=== PATIENT | male | born 1965 | race Caucasian/White ===

== ENCOUNTER 2016-10-20 05:14 | Day surgery (SDC) | payer BC ==
[~2016-10-20 05:14] MED LIST: Dextrose 5%-0.45% NaCl 1,000 ML IV SCH; Sodium Chloride 0.9% 10 ML Syringe FLUSH PRN
[2016-10-20] MEDS ORDERED: Sodium Chloride 0.9% 10 ML Syringe FLUSH PRN ×2 (05:59→07:16)
[2016-10-20] MEDS ORDERED: Dextrose 5%-0.45% NaCl 1,000 ML IV SCH ×2 (06:00→07:30)
[2016-10-20] MEDS ORDERED: fentaNYL 100 MCG/2 ML SDV ONE (06:13)
[2016-10-20] MEDS ORDERED: Midazolam 1 MG/ML 2 ML SDV ONE (06:13)
[2016-10-20] MEDS ORDERED: fentaNYL 100 MCG/2 ML SDV IV ONE ×5 (06:29→16:49)
[2016-10-20] MEDS ORDERED: Midazolam 1 MG/ML 2 ML SDV IV ONE ×7 (06:30→16:49)
--- NOTE | 2016-10-20 07:47 | OR ---
DATE: 10/20/2016 PROCEDURES: Total colonoscopy, NBI, and cold snare polypectomy. INSTRUMENT USED: CF-H180AL Olympus video colonoscope. PREMEDICATIONS: Fentanyl 150 mcg intravenous, Versed 4 mg intravenous. The procedure was done under pulse oximetry, BP recording, and telemetry monitor. INDICATION: Screening colonoscopic examination is done for detection of any polypoid lesions and removal, endoscopic hemostasis therapy if needed. DESCRIPTION OF PROCEDURE: Initial rectal exam was unremarkable. Rigid anoscopy was normal. The scope was passed with ease. Numerous scattered diverticula were noted, more so in the distal left colon. The scope was passed with ease up to the ileocecal area, photographs were taken of the normal-appearing cecum, identified by appendiceal orifice and double-bulged ileocecal folds. No bleeding was noted from any of the visualized areas at the commencement of the examination. No stricture. No vascular ectasia. No large isolated ulcerations seen. No evidence of diffuse inflammatory bowel disease in the form of friability, contact bleeding, or ulcerations. In the mid-ascending colon, less than 1 cm sized superficial sessile polyp was noted, NBI views were obtained, cold snare polypectomy was done, the tissue was retrieved and sent for histopathology. Probing the proximal sides of folds and flexures, using adequate distention and clearing of the stool material, withdrawal of the scope was made, cecum to rectum time over 6 minutes. No bleeding was noted from any of the visualized areas at the completion of examination. IMPRESSION: 1. Diverticulosis. 2. Ascending colon polyp. The patient tolerated the procedure well. [facility] /[id number]
[2016-10-20 08:09] VITALS: BP 145/89
== END 2016-10-20 08:30 | disposition home or self-care (01) ==
LOC: DL.ENDO 05:14
PROVIDERS: ATTEND Internal Medicine Gastroenterology
DX: Z12.11 Encounter for screening for malignant neoplasm of colon (principal); D12.2 Benign neoplasm of ascending colon; K57.30 Diverticulosis of large intestine without perforation or abscess without bleeding; I10 Essential (primary) hypertension; E11.9 Type 2 diabetes mellitus without complications; E78.5 Hyperlipidemia, unspecified; E66.9 Obesity, unspecified; Z72.0 Tobacco use; Z98.890 Other specified postprocedural states; F17.210 Nicotine dependence, cigarettes, uncomplicated; Z79.82 Long term (current) use of aspirin; Z79.01 Long term (current) use of anticoagulants; Z79.84 Long term (current) use of oral hypoglycemic drugs; Z79.899 Other long term (current) drug therapy
CPT/HCPCS: 45385; J2250; J3010; J7042

== ENCOUNTER 2017-02-07 13:14 | Emergency (ER) | payer BC ==
[2017-02-07 13:23] VITALS: BP 147/80
--- NOTE | 2017-02-07 13:35 | EDM.PDOC ---
ED HPI GENERAL MEDICAL PROBLEM - General Chief Complaint: Lower Extremity Injury/Pain Stated Complaint: LEFT KNEE Time Seen by Provider: 02/07/17 13:30 Source of Information: Reports: Patient History Limitations: Reports: No Limitations - History of Present Illness INITIAL COMMENTS - FREE TEXT/NARRATIVE: This 51 yo male patient reports to the ED with left posterior knee pain. The patient reports about 20 minutes prior to arrival in the ED, he was stepping up into his truck with the left foot followed by the right foot. When he placed the right foot on the running board, the patient reports he heard a "pop" and began to have increased pain in the back of his left knee. The patient reports increased pain and discomfort with putting weight on his left knee. Onset: Today Duration: Minutes: (20), Constant Location: Reports: Lower Extremity, Left (posterior knee) Quality: Reports: Ache, Dull Severity: Moderate Improves with: Reports: Rest Worsens with: Reports: Movement Context: Reports: Activity Associated Symptoms: Reports: No Other Symptoms Left Knee Pain Score (Numeric/FACES): 8 - Related Data Allergies Allergy/AdvReac Type Severity Reaction Status Date / Time No Known Allergies Allergy Verified 02/07/17 13:20 Home Meds: Home Meds Triamterene/Hydrochlorothiazid [Triamterene-HCTZ 37.5-25 MG] 37.5 each PO DAILY 08/03/13 [History] buPROPion [Wellbutrin XL] 1 tab PO BID 05/07/14 [History] Glimepiride [Amaryl] 2 mg PO DAILY 02/24/16 [History] Losartan [Cozaar] 50 mg PO DAILY 02/24/16 [History] Simvastatin [Simvastatin] 30 mg PO DAILY 02/24/16 [History] metFORMIN [Glucophage XR] 1,000 mg PO BIDMEALS 02/24/16 [History] Aspirin/Calcium Carbonate/Mag [Aspirin Buffered 325 mg Tab] 1 tab PO DAILY 09/30 [History] Past Medical History HEENT History: Reports: Hard of Hearing Other HEENT History: 22 ear operations (?) Cardiovascular History: Reports: High Cholesterol, Hypertension, Other (See Below) Other Cardiovascular History: HYPERLIPIDEMIA Respiratory History: Reports: None Gastrointestinal History: Reports: None Genitourinary History: Reports: None Musculoskeletal History: Reports: Back Pain, Chronic, Other (See Below) Other Musculoskeletal History: 4 back surgeries. L ANKLE INJURY. BURSITIS, PREPATELLAR, LEFT Neurological History: Reports: Other (See Below) Other Neuro History: FERNANDEZ'S PALSY Psychiatric History: Reports: None Endocrine/Metabolic History: Reports: Diabetes, Type II, Obesity/BMI 30+ Hematologic History: Reports: None Immunologic History: Reports: None Oncologic (Cancer) History: Reports: None Dermatologic History: Reports: None - Infectious Disease History Infectious Disease History: Reports: Chicken Pox - Past Surgical History HEENT Surgical History: Reports: Adenoidectomy, Myringotomy w Tube(s), Naso- Sinus Surgery, Polypectomy, Tonsillectomy, Other (See Below) Other HEENT Surgeries/Procedures: LIP SUTURE GI Surgical History: Reports: None Male Surgical History: Reports: Vasectomy Social & Family History - Family History Family Medical History: Unobtainable - Tobacco Use Smoking Status *Q: Current Every Day Smoker Years of Tobacco use: 39 Packs/Tins Daily: 0.5 Used Tobacco, but Quit: No Second Hand Smoke Exposure: Yes - Caffeine Use Caffeine Use: Reports: Coffee, Soda Caffeine Use Comment: 4 CUPS DAILY - Alcohol Use Days Per Week of Alcohol Use: 0 - Recreational Drug Use Recreational Drug Use: No - Living Situation & Occupation Living situation: Reports: Occupation: Employed Review of Systems - Review of Systems Review Of Systems: ROS reveals no pertinent complaints other than HPI. ED EXAM, GENERAL - Physical Exam Exam: See Below Exam Limited By: No Limitations General Appearance: Alert, WD/WN, Moderate Distress, Obese Eye Exam: Bilateral Eye: EOMI, Normal Inspection, PERRL Ears: Normal External Exam, Normal Canal, Hearing Grossly Normal, Normal TMs Nose: Normal Inspection, Normal Mucosa, No Blood Throat/Mouth: Normal Inspection, Normal Lips, Normal Teeth, Normal Gums, Normal Oropharynx, Normal Voice, No Airway Compromise Head: Atraumatic, Normocephalic Neck: Normal Inspection, Supple, Full Range of Motion Respiratory/Chest: No Respiratory Distress, Lungs Clear, Normal Breath Sounds, No Accessory Muscle Use, Chest Non-Tender Cardiovascular: Normal Peripheral Pulses, Regular Rate, Rhythm, No Edema, No Gallop, No JVD, No Murmur, No Rub GI/Abdominal: Normal Bowel Sounds, Soft, Non-Tender, No Organomegaly, No Distention, No Abnormal Bruit, No Mass (Male) Exam: Deferred Rectal (Males) Exam: Deferred Back Exam: Normal Inspection, Full Range of Motion, NT Extremities: Leg Pain (left posterior knee pain pain with anterior drawer test) , Limited Range of Motion (due to pain) Neurological: Alert, Oriented, CN II-XII Intact, Normal Cognition, No Motor/ Sensory Deficits, Abnormal Gait (due to pain in the left knee) Psychiatric: Normal Affect, Normal Mood Skin Exam: Warm, Dry, Intact, Normal Color, No Rash Lymphatic: No Adenopathy Course - Vital Signs Last Recorded V/S: Last Vital Signs Temp 35.3 C 02/07/17 13:22 Pulse 68 02/07/17 13:22 Resp 20 02/07/17 13:22 BP 147/80 H 02/07/17 13:22 Pulse Ox 100 02/07/17 13:22 - Orders/Labs/Meds Orders: Active Orders 24 hr Category Date Time Status Knee 3V Lt [CR] Urgent Exams 02/07/17 13:29 Taken DME for Discharge [COMM] Urgent Oth 02/07/17 14:06 Ordered Departure - Departure Time of Disposition: 14:06 Disposition: Home, Self-Care 01 Condition: Fair Clinical Impression: Strain of left knee Qualifiers: Encounter type: initial encounter Qualified Code(s): S86.912A - Strain of unspecified muscle(s) and tendon(s) at lower leg level, left leg, initial encounter - Discharge Information Instructions: Knee Sprain, [id number] Forms: ED Department Discharge Care Plan Goals: The patient was advised of the examination and x-ray results during the visit. The patient was encouraged to rest, ice and elevate his left knee over the next 24-48 hours. The patient may take Tylenol or ibuprofen as needed for temporary symptom relief. If the patient has any additional symptoms or concerns, the patient should follow-up with his primary care facility or return to the emergency department. - My Orders Last 24 Hours: My Active Orders 02/07/17 13:29 Knee 3V Lt [CR] Urgent 02/07/17 14:06 DME for Discharge [COMM] Urgent - Assessment/Plan Last 24 Hours: My Active Orders 02/07/17 13:29 Knee 3V Lt [CR] Urgent 02/07/17 14:06 DME for Discharge [COMM] Urgent
== END 2017-02-07 14:11 | disposition home or self-care (01) ==
LOC: DL.ED 13:14
DX: S86.912A Strain of unspecified muscle(s) and tendon(s) at lower leg level, left leg, initial encounter (principal); E11.9 Type 2 diabetes mellitus without complications; F17.210 Nicotine dependence, cigarettes, uncomplicated; Z79.899 Other long term (current) drug therapy; Z79.82 Long term (current) use of aspirin; Z79.84 Long term (current) use of oral hypoglycemic drugs; X50.1XXA Overexertion from prolonged static or awkward postures, initial encounter
CPT/HCPCS: 73562-LT; 99283

== ENCOUNTER 2017-05-13 09:31 | Emergency (ER) | payer BC ==
[2017-05-13] MEDS: Aspirin 81 MG Tab.Chew PO ONE (10:02)
[2017-05-13 10:11] VITALS: BP 141/70
--- NOTE | 2017-05-13 10:13 | CR ---
Clinical history: 51-year-old male chest pain. Interpretation: Upright AP portable chest film unremarkable. Normal cardiac silhouette without cephalization of flow, signs of alveolar edema or dependent pleural fluid accumulation (external quality assurance monitor chassis leads). No lung mass, hilar lymphadenopathy or focal lobar pneumonia. No atelectasis/collapse. No pneumothorax. CONCLUSION: No acute cardiopulmonary abnormality.
[2017-05-13 10:56] LABS: CHLORIDE,CL 101 mmol/L (101-111); SODIUM,NA 134 mmol/L (135-145)
--- NOTE | 2017-05-13 11:43 | EDM.PDOC ---
ED HPI GENERAL MEDICAL PROBLEM - General Chief Complaint: Cardiovascular Problem Stated Complaint: [id number] CANT CONTROL PULSE OF BLOOD PRESSURE Time Seen by Provider: 05/13/17 10:10 Source of Information: Reports: Patient History Limitations: Reports: No Limitations - History of Present Illness INITIAL COMMENTS - FREE TEXT/NARRATIVE: This 51 yo male patient reports to the ED with intermittent episodes of chest feeling funny, irregular heartbeats and flushing. The patient reports a history of diabetes, hypertension and tobacco use. The patient has continued to smoke, despite treatment with Wellbutrin. Onset: Today Duration: Hour(s):, Intermittent Location: Reports: Chest Quality: Reports: Dull Severity: Moderate Improves with: Reports: None Worsens with: Reports: None Associated Symptoms: Reports: Weakness Treatments [employer]: Reports: Aspirin - Related Data Allergies Allergy/AdvReac Type Severity Reaction Status Date / Time No Known Allergies Allergy Verified 02/07/17 13:20 Home Meds: Home Meds Triamterene/Hydrochlorothiazid [Triamterene-HCTZ 37.5-25 MG] 37.5 each PO DAILY 08/03/13 [History] buPROPion [Wellbutrin XL] 1 tab PO BID 05/07/14 [History] Glimepiride [Amaryl] 2 mg PO DAILY 02/24/16 [History] Losartan [Cozaar] 50 mg PO DAILY 02/24/16 [History] Simvastatin [Simvastatin] 30 mg PO DAILY 02/24/16 [History] metFORMIN [Glucophage XR] 1,000 mg PO BIDMEALS 02/24/16 [History] Aspirin [Halfprin] 162 mg PO DAILY 05/13/17 [History] Past Medical History HEENT History: Reports: Hard of Hearing Other HEENT History: 22 ear operations (?) Cardiovascular History: Reports: High Cholesterol, Hypertension, Other (See Below) Other Cardiovascular History: HYPERLIPIDEMIA Respiratory History: Reports: None Gastrointestinal History: Reports: None Genitourinary History: Reports: None Musculoskeletal History: Reports: Back Pain, Chronic, Other (See Below) Other Musculoskeletal History: 4 back surgeries. L ANKLE INJURY. BURSITIS, PREPATELLAR, LEFT Neurological History: Reports: Other (See Below) Other Neuro History: FERNANDEZ'S PALSY Psychiatric History: Reports: None Endocrine/Metabolic History: Reports: Diabetes, Type II, Obesity/BMI 30+ Hematologic History: Reports: None Immunologic History: Reports: None Oncologic (Cancer) History: Reports: None Dermatologic History: Reports: None - Infectious Disease History Infectious Disease History: Reports: Chicken Pox - Past Surgical History HEENT Surgical History: Reports: Adenoidectomy, Myringotomy w Tube(s), Naso- Sinus Surgery, Polypectomy, Tonsillectomy, Other (See Below) Other HEENT Surgeries/Procedures: LIP SUTURE GI Surgical History: Reports: None Male Surgical History: Reports: Vasectomy Social & Family History - Family History Family Medical History: Unobtainable - Tobacco Use Smoking Status *Q: Current Every Day Smoker Years of Tobacco use: 35 Packs/Tins Daily: 1 Used Tobacco, but Quit: No Second Hand Smoke Exposure: Yes - Caffeine Use Caffeine Use: Reports: Coffee, Soda Caffeine Use Comment: 4 CUPS DAILY - Alcohol Use Days Per Week of Alcohol Use: 0 - Recreational Drug Use Recreational Drug Use: No - Living Situation & Occupation Living situation: Reports: Occupation: Employed ED ROS GENERAL - Review of Systems Review Of Systems: ROS reveals no pertinent complaints other than HPI. ED EXAM, GENERAL - Physical Exam Exam: See Below Exam Limited By: No Limitations General Appearance: Alert, WD/WN, Moderate Distress Eye Exam: Bilateral Eye: EOMI, Normal Inspection, PERRL Ears: Normal External Exam, Normal Canal, Hearing Grossly Normal, Normal TMs Nose: Normal Inspection, Normal Mucosa, No Blood Throat/Mouth: Normal Inspection, Normal Lips, Normal Teeth, Normal Gums, Normal Oropharynx, Normal Voice, No Airway Compromise Head: Atraumatic, Normocephalic Neck: Normal Inspection, Supple, Non-Tender, Full Range of Motion Respiratory/Chest: No Respiratory Distress, Lungs Clear, Normal Breath Sounds, No Accessory Muscle Use, Chest Non-Tender Cardiovascular: No Edema, No Gallop, No JVD, No Murmur, No Rub, Extra Beats GI/Abdominal: Normal Bowel Sounds, Soft, Non-Tender, No Organomegaly, No Distention, No Abnormal Bruit, No Mass (Male) Exam: Deferred Rectal (Males) Exam: Deferred Back Exam: Normal Inspection, Full Range of Motion, NT Extremities: Normal Inspection, Normal Range of Motion, Non-Tender, Normal Capillary Refill, No Pedal Edema Neurological: Alert, Oriented, CN II-XII Intact, Normal Cognition, Normal Gait, Normal Reflexes, No Motor/Sensory Deficits Psychiatric: Normal Affect, Normal Mood Skin Exam: Warm, Dry, Intact, Normal Color, No Rash EKG INTERPRETATION EKG Date: 05/13/17 Time: 10:00 Rhythm: Other (sinus rhythm with intermittent bigeminal PVC's) [place]: Normal P-Wave: Present Comparison: Change From Previous EKG Course - Vital Signs Last Recorded V/S: Last Vital Signs Temp 37.4 C 05/13/17 09:45 Pulse 103 H 05/13/17 09:45 Resp 18 05/13/17 09:45 BP 141/70 H 05/13/17 09:45 Pulse Ox 98 05/13/17 09:45 - Orders/Labs/Meds Orders: Active Orders 24 hr Category Date Time Status EKG Documentation Completion [RC] URGENT Care 05/13/17 09:47 Active Labs: Laboratory Tests 05/13/17 05/13/17 Range/Units 10:05 10:05 WBC 9.6 (5.0-10.0) 10^3/uL RBC 4.55 L (4.6-6.2) 10^6/uL Hgb 13.8 L D (14.0-18.0) g/dL Hct 41.1 (40.0-54.0) % MCV 90.3 (80-100) fL MCH 30.3 (27.0-34.0) pg MCHC 33.6 (33.0-35.0) g/dL Plt Count 174 (150-450) 10^3/uL Neut % (Auto) 77.4 H (42.2-75.2) % Lymph % (Auto) 14.3 L (20.5-50.1) % [place] % (Auto) 6.4 (2-8) % Eos % (Auto) 1.6 (1.0-3.0) % Baso % (Auto) 0.3 (0.0-1.0) % Sodium 134 L (135-145) mmol/L Potassium 4.2 (3.6-5.0) mmol/L Chloride 101 (101-111) mmol/L Carbon Dioxide 22.0 (21.0-31.0) mmol/L Anion Gap 15.2 BUN 17 (7-18) mg/dL Creatinine 1.1 (0.6-1.3) mg/dL Est Cr Clr Drug Dosing 83.33 mL/min Estimated GFR (MDRD) > 60 BUN/Creatinine Ratio 15.45 Glucose 226 H (74-105) mg/dL Calcium 9.3 (8.4-10.2) mg/dl Total Bilirubin 0.3 (0.2-1.0) mg/dL AST 29 (10-42) IU/L ALT 24 (10-60) IU/L Alkaline Phosphatase 61 (42-121) IU/L Troponin I 0.02 (0.00-0.02) ng/ml Total Protein 7.2 (6.7-8.2) g/dl Albumin 4.2 (3.2-5.5) g/dl Globulin 3.0 Albumin/Globulin Ratio 1.40 Meds: Medications Discontinued Medications Generic Name Dose Route Start Last Admin Trade Name Freq PRN Reason Stop Dose Admin Aspirin 324 mg 05/13/17 09:50 05/13/17 10:02 Aspirin PO 05/13/17 09:51 324 mg ONETIME ONE Administration Departure - Departure Time of Disposition: 11:46 Disposition: DC/Tfer to Acute Hospital 02 Reason for Transfer *Q: Other Condition: Fair Clinical Impression: Frequent PVCs Forms: Interfacility Transfer EMTALA Care Plan Goals: Discussed the patient's history, examination, EKG and lab results with Dr. Geiger (Hospitalist with [facility] in [place]). Dr. Geiger accepted the patient for continued evaluation and further management. The patient will be transported by [facility]. - My Orders Last 24 Hours: My Active Orders 05/13/17 09:47 EKG Documentation Completion [RC] URGENT - Assessment/Plan Last 24 Hours: My Active Orders 05/13/17 09:47 EKG Documentation Completion [RC] URGENT
[2017-05-13] MEDS: Sodium Chloride 0.9% 1,000 ML IV SCH (11:50)
--- NOTE | 2017-05-14 15:15 | EKG ---
05/13/2017 - LADARIUS BARON - TIME: 9:37 FINDINGS: EKG per my reading, shows sinus rhythm at the rate of 102, left anterior fascicular block. No acute ST changes. [facility] /[id number]
== END 2017-05-13 12:00 ==
LOC: DL.ED 09:31
DX: I49.3 Ventricular premature depolarization (principal); E11.9 Type 2 diabetes mellitus without complications; E78.00 Pure hypercholesterolemia, unspecified; F17.210 Nicotine dependence, cigarettes, uncomplicated; I10 Essential (primary) hypertension; Z79.899 Other long term (current) drug therapy; Z79.82 Long term (current) use of aspirin
CPT/HCPCS: 36415; 71045; 80053; 84484; 85025; 93005; 99285; A9270; J7030

== ENCOUNTER 2019-07-30 09:51 | Emergency (ER) | payer BC ==
[2019-07-30 10:20] VITALS: BP 119/74; PULSE 82
--- NOTE | 2019-07-30 10:37 | EDM.PDOC ---
Scribed by Charlene Smith 07/30/19 1023 for Dylan Isbell MD ED HPI GENERAL MEDICAL PROBLEM - General Chief Complaint: Lower Extremity Injury/Pain Stated Complaint: right knee pain and swelling Time Seen by Provider: 07/30/19 09:56 Source of Information: Reports: Patient, RN, RN Notes Reviewed History Limitations: Reports: No Limitations - History of Present Illness INITIAL COMMENTS - FREE TEXT/NARRATIVE: Patient presents to ER by POV with right knee pain. He states that it started on Wednesday. Last evening he noticed some redness to his knee. He has had no injury, but has been out working in his yard. This morning he thought the redness was darker looking. Most of his pain is on the outside of the knee. Onset: Unknown/Unsure Duration: Getting Worse Location: Reports: Lower Extremity, Right (knee) Quality: Reports: Ache Severity: Moderate Improves with: Reports: None Worsens with: Reports: None Associated Symptoms: Reports: No Other Symptoms Right Knee Pain Score (Numeric/FACES): 3 - Related Data Allergies Allergy/AdvReac Type Severity Reaction Status Date / Time No Known Allergies Allergy Verified 07/30/19 09:59 Home Meds: Home Meds Triamterene/Hydrochlorothiazid [Triamterene-HCTZ 37.5-25 MG] 37.5 each PO DAILY 08/03/13 [History] buPROPion [Wellbutrin XL] 1 tab PO BID 05/07/14 [History] Glimepiride [Amaryl] 2 mg PO DAILY 02/24/16 [History] Losartan [Cozaar] 50 mg PO DAILY 02/24/16 [History] Simvastatin 30 mg PO DAILY 02/24/16 [History] metFORMIN [Glucophage XR] 1,000 mg PO BIDMEALS 02/24/16 [History] Aspirin [Halfprin] 81 mg PO DAILY 05/13/17 [History] Dulaglutide [Trulicity] 1 pen SQ Q7D 07/30/19 [History] Empagliflozin [Jardiance] 25 mg PO DAILY 07/30/19 [History] FLUoxetine HCl [Fluoxetine HCl] 20 mg PO DAILY 07/30/19 [History] Levothyroxine 25 mg PO DAILY 07/30/19 [History] Metoprolol Tartrate 25 mg PO DAILY 07/30/19 [History] calcitrioL [Calcitriol] 0.25 mcg PO DAILY 07/30/19 [History] Past Medical History HEENT History: Reports: Hard of Hearing Other HEENT History: 22 ear operations (?) Cardiovascular History: Reports: High Cholesterol, Hypertension, Other (See Below) Other Cardiovascular History: HYPERLIPIDEMIA Respiratory History: Reports: None Gastrointestinal History: Reports: None Genitourinary History: Reports: None Musculoskeletal History: Reports: Back Pain, Chronic, Other (See Below) Other Musculoskeletal History: 4 back surgeries. L ANKLE INJURY. BURSITIS, PREPATELLAR, LEFT Neurological History: Reports: Other (See Below) Other Neuro History: FERNANDEZ'S PALSY Psychiatric History: Reports: None Endocrine/Metabolic History: Reports: Diabetes, Type II, Obesity/BMI 30+ Hematologic History: Reports: None Immunologic History: Reports: None Oncologic (Cancer) History: Reports: None Dermatologic History: Reports: None - Infectious Disease History Infectious Disease History: Reports: Chicken Pox - Past Surgical History HEENT Surgical History: Reports: Adenoidectomy, Myringotomy w Tube(s), Naso- Sinus Surgery, Polypectomy, Tonsillectomy, Other (See Below) Other HEENT Surgeries/Procedures: LIP SUTURE GI Surgical History: Reports: None Male Surgical History: Reports: Vasectomy Social & Family History - Family History Family Medical History: Unobtainable - Caffeine Use Caffeine Use: Reports: Coffee, Soda Caffeine Use Comment: 4 CUPS DAILY - Living Situation & Occupation Living situation: Reports: Occupation: Employed Review of Systems - Review of Systems Review Of Systems: Comprehensive ROS is negative, except as noted in HPI. ED EXAM, GENERAL - Physical Exam Exam: See Below Exam Limited By: No Limitations General Appearance: Alert, WD/WN, No Apparent Distress Head: Atraumatic, Normocephalic Neck: Normal Inspection Respiratory/Chest: No Respiratory Distress, Lungs Clear, Normal Breath Sounds, No Accessory Muscle Use, Chest Non-Tender Cardiovascular: Normal Peripheral Pulses Back Exam: Normal Inspection Extremities: No Pedal Edema, Normal Capillary Refill, Joint Swelling (Slight soft tissue swelling of right lateral knee.), Leg Pain (Rt posterior knee tenderness, no mass or swelling, increased pain with dorsiflexion at the ankle) , Other (Large contusion to right knee anteriorly and laterally.). No: Cayden's Sign, Increased Warmth, Mottled, Pallor, Redness Neurological: Alert, Oriented, CN II-XII Intact, Normal Cognition, No Motor/ Sensory Deficits Psychiatric: Normal Mood Course - Vital Signs Last Recorded V/S: Last Vital Signs Temp 95.6 F L 07/30/19 09:54 Pulse 82 07/30/19 09:54 Resp 18 07/30/19 09:54 BP 119/74 07/30/19 09:54 Pulse Ox 100 07/30/19 09:54 Departure - Departure Time of Disposition: 10:17 Disposition: Home, Self-Care 01 Condition: Good Clinical Impression: Right knee pain Qualifiers: Chronicity: acute Qualified Code(s): M25.561 - Pain in right knee Contusion of right knee Qualifiers: Encounter type: initial encounter Qualified Code(s): S80.01XA - Contusion of right knee, initial encounter - Discharge Information *PRESCRIPTION DRUG MONITORING PROGRAM REVIEWED*: Not Applicable *COPY OF PRESCRIPTION DRUG MONITORING REPORT IN PATIENT KLAUDIA: Not Applicable Instructions: Acute Knee Pain, Adult, Popliteus Tendinitis, Contusion, Easy-to- Read Forms: ED Department Discharge Additional Instructions: Rest, ice, and elevate right knee to reduce pain and swelling. Use Ibuprofen (Advil/Motrin) 200mg: Take 4 tablets by mouth every 8 hours as needed for pain. Take with food/meals. Do not exceed 12 tablets in 24 hours. Rx: Presto 5mg/325mg *Do not drive or work for 8 hours after taking this medication. Follow up in clinic if not improving in 7 to 10 days. Sepsis Event Note - Focused Exam Vital Signs: Vital Signs Temp Pulse Resp BP Pulse Ox 07/30/19 09:54 95.6 F L 82 18 119/74 100 Date Exam was Performed: 07/30/19 Time Exam was Performed: 10:31 I have read and agree with the documentation that has been completed regarding this visit. By signing this record, I attest that the documentation was completed in my physical presence and is an accurate record of the encounter.
== END 2019-07-30 10:35 | disposition home or self-care (01) ==
LOC: DL.ED 09:51
DX: S80.01XA Contusion of right knee, initial encounter (principal); I10 Essential (primary) hypertension; E78.5 Hyperlipidemia, unspecified; E11.9 Type 2 diabetes mellitus without complications; E66.9 Obesity, unspecified; Z79.84 Long term (current) use of oral hypoglycemic drugs; Z79.899 Other long term (current) drug therapy; Z79.82 Long term (current) use of aspirin; X58.XXXA Exposure to other specified factors, initial encounter
CPT/HCPCS: 99283

== ENCOUNTER 2021-03-01 19:43 | Emergency (ER) | payer BC ==
[2021-03-01] MEDS ORDERED: Cyclobenzaprine 10 MG Tab PO ONE (19:44)
[2021-03-01] MEDS ORDERED: Acetaminophen/HYDROcodone 325-10 MG Tab PO ONE (19:44)
--- NOTE | 2021-03-01 20:14 | EDM.PDOC ---
ED HPI GENERAL MEDICAL PROBLEM - General Chief Complaint: Lower Extremity Injury/Pain Stated Complaint: RIGHT INNER THIGH, SOMETHING POPPED AND VERY SORE Time Seen by Provider: 03/01/21 19:55 Source of Information: Reports: Patient History Limitations: Reports: No Limitations - History of Present Illness INITIAL COMMENTS - FREE TEXT/NARRATIVE: ED per wheelchair with c/o pain to right upper thigh and groin. States slipped on ice 2-3 days prior Did not fall. , reportedd soaked in tub after and pain resolved. Sx returned approximately 3 hours ago. Difficulty walking due to dis comfort. Had to leave work. Denied reinjury. Onset pain sudden. no hx clotting disorder. No back pain. Describes as sharp burning. No sweling, bruising or deformity. Right Upper Leg Pain Score (Numeric/FACES): 8 - Related Data Allergies Allergy/AdvReac Type Severity Reaction Status Date / Time No Known Allergies Allergy Verified 03/01/21 19:55 Home Meds: Home Meds Triamterene/Hydrochlorothiazid [Triamterene-HCTZ 37.5-25 MG] 37.5 each PO DAILY 08/03/13 [History] buPROPion [Wellbutrin XL] 1 tab PO BID 05/07/14 [History] Glimepiride [Amaryl] 2 mg PO DAILY 02/24/16 [History] Losartan [Cozaar] 50 mg PO DAILY 02/24/16 [History] Simvastatin 30 mg PO DAILY 02/24/16 [History] metFORMIN [Glucophage XR] 500 mg PO BIDMEALS 02/24/16 [History] Aspirin [Halfprin] 81 mg PO DAILY 05/13/17 [History] Dulaglutide [Trulicity] 1 pen SQ Q7D 07/30/19 [History] Empagliflozin [Jardiance] 25 mg PO DAILY 07/30/19 [History] FLUoxetine HCl [Fluoxetine HCl] 20 mg PO BID 07/30/19 [History] Levothyroxine 25 mcg PO DAILY 07/30/19 [History] Metoprolol Tartrate 25 mg PO DAILY 07/30/19 [History] calcitrioL [Calcitriol] 0.25 mcg PO DAILY 07/30/19 [History] Past Medical History HEENT History: Reports: Hard of Hearing Other HEENT History: 22 ear operations (?) Cardiovascular History: Reports: High Cholesterol, Hypertension, Other (See Below) Other Cardiovascular History: HYPERLIPIDEMIA Respiratory History: Reports: None Gastrointestinal History: Reports: None Genitourinary History: Reports: None Musculoskeletal History: Reports: Back Pain, Chronic, Other (See Below) Other Musculoskeletal History: 4 back surgeries. L ANKLE INJURY. BURSITIS, PREPATELLAR, LEFT Neurological History: Reports: Other (See Below) Other Neuro History: FERNANDEZ'S PALSY Psychiatric History: Reports: None Endocrine/Metabolic History: Reports: Diabetes, Type II, Hyperthyroidism, Obesity/BMI 30+ Hematologic History: Reports: None Immunologic History: Reports: None Oncologic (Cancer) History: Reports: None Dermatologic History: Reports: None - Infectious Disease History Infectious Disease History: Reports: Chicken Pox, Novel Coronavirus - Past Surgical History HEENT Surgical History: Reports: Adenoidectomy, Myringotomy w Tube(s), Naso- Sinus Surgery, Polypectomy, Tonsillectomy, Other (See Below) Other HEENT Surgeries/Procedures: LIP SUTURE GI Surgical History: Reports: None Male Surgical History: Reports: Vasectomy Social & Family History - Family History Family Medical History: Unobtainable - Tobacco Use Tobacco Use Status *Q: Former Tobacco User Used Tobacco, but Quit: Yes Month/Year Tobacco Last Used: 2018 - Caffeine Use Caffeine Use: Reports: Coffee, Soda Caffeine Use Comment: 4 CUPS DAILY - Recreational Drug Use Recreational Drug Use: No - Living Situation & Occupation Living situation: Reports: Occupation: Employed Review of Systems - Review of Systems Review Of Systems: Comprehensive ROS is negative, except as noted in HPI. ED EXAM, GENERAL - Physical Exam Exam: See Below Exam Limited By: No Limitations General Appearance: Alert, Anxious Eye Exam: Bilateral Eye: EOMI Ears: Normal External Exam, Normal TMs Nose: Normal Inspection Throat/Mouth: Normal Inspection Head: Atraumatic, Normocephalic Neck: Normal Inspection Respiratory/Chest: No Respiratory Distress, Lungs Clear, Normal Breath Sounds Cardiovascular: Normal Peripheral Pulses, Regular Rate, Rhythm, No Edema GI/Abdominal: Normal Bowel Sounds, Soft, Non-Tender Back Exam: Full Range of Motion (hip, groin pain worse with gait, external rotation) Extremities: Leg Pain (right groin hip pain, mild inner lower thigh with palpation ), Limited Range of Motion Neurological: Alert, Oriented, Normal Cognition, No Motor/Sensory Deficits Skin Exam: Warm, Dry, Intact, Normal Color, No Rash. No: Ecchymosis, Erythema Course - Vital Signs Last Recorded V/S: Last Vital Signs Temp 97.3 F 03/01/21 19:48 Pulse 48 L 03/01/21 21:24 Resp 18 03/01/21 21:24 BP 146/92 H 03/01/21 21:24 Pulse Ox 98 03/01/21 21:24 - Orders/Labs/Meds Labs: Laboratory Tests 03/01/21 03/01/21 03/01/21 Range/Units 21:10 21:10 21:10 WBC 9.0 (5.0-10.0) 10^3/uL RBC 4.96 (4.6-6.2) 10^6/uL Hgb 14.9 (14.0-18.0) g/dL Hct 45.7 (40.0-54.0) % MCV 92.1 (80-100) fL MCH 30.0 (27.0-34.0) pg MCHC 32.6 L (33.0-35.0) g/dL Plt Count 183 (150-450) 10^3/uL Neut % (Auto) 65.8 (42.2-75.2) % Lymph % (Auto) 22.0 (20.5-50.1) % [place] % (Auto) 10.0 H (2-8) % Eos % (Auto) 1.9 (1.0-3.0) % Baso % (Auto) 0.3 (0.0-1.0) % PT 10.4 (9.0-12.0) SEC INR 1.0 (0.9-1.2) D-Dimer, Quantitative < 100 (0-400) ng/mL Sodium 139 (136-145) mmol/L Potassium 4.2 (3.5-5.1) mmol/L Chloride 103 (98-107) mmol/L Carbon Dioxide 26 (21-32) mmol/L Anion Gap 14.2 H (7-13) mEq/L BUN 27 H (7-18) mg/dL Creatinine 1.16 (0.70-1.30) mg/dL Est Cr Clr Drug Dosing 74.29 mL/min Estimated GFR (MDRD) > 60 BUN/Creatinine Ratio 23.3 (No establ ref range) Glucose 127 H (70-99) mg/dL Calcium 8.9 (8.5-10.1) mg/dL Total Bilirubin 0.3 (0.2-1.0) mg/dL AST 21 (15-37) U/L ALT 36 (16-63) U/L Alkaline Phosphatase 71 (46-116) U/L Total Protein 6.8 (6.4-8.2) g/dL Albumin 3.8 (3.4-5.0) g/dL Globulin 3.0 Albumin/Globulin Ratio 1.3 Meds: Medications Discontinued Medications Generic Name Dose Route Start Last Admin Trade Name Freq PRN Reason Stop Dose Admin Hydrocodone Bitart/Acetaminophen Confirm 03/01/21 22:43 Acetaminophen/Hydrocodone 325-10 Mg Tab Administered 03/01/21 22:44 Dose 3 tab .ROUTE .STK-MED ONE Cyclobenzaprine HCl Confirm 03/01/21 22:41 Cyclobenzaprine 10 Mg Tab Administered 03/01/21 22:42 Dose 20 mg .ROUTE .STK-MED ONE Fentanyl 50 mcg 03/01/21 20:52 03/01/21 21:18 Fentanyl 100 Mcg/2 Ml Sdv IVPUSH 03/01/21 20:53 50 mcg ONETIME ONE Administration Protocol Ondansetron HCl 4 mg 03/01/21 20:52 03/01/21 21:15 Ondansetron 4 Mg/2 Ml Sdv IVPUSH 03/01/21 20:53 4 mg ONETIME ONE Administration Departure - Departure Time of Disposition: 22:38 Disposition: Home, Self-Care 01 Condition: Good Clinical Impression: Right groin pain - Discharge Information *PRESCRIPTION DRUG MONITORING PROGRAM REVIEWED*: No *COPY OF PRESCRIPTION DRUG MONITORING REPORT IN PATIENT KLAUDIA: No Instructions: Muscle Strain, [id number] Referrals: PCP,None [Primary Care Provider] - Forms: ED Department Discharge Additional Instructions: flexeril 10mg one every 8 hours as needed for spasm hydrocodone 10/325 one every 6 hours as needed for sever pain clinic follow up early next week alternate ice and warmth to area
[2021-03-01] MEDS ORDERED: fentaNYL 100 MCG/2 ML SDV IVPUSH ONE (20:52)
[2021-03-01] MEDS ORDERED: Ondansetron 4 MG/2 ML SDV IVPUSH ONE (20:52)
[2021-03-01 21:25] VITALS: BP 146/92; PULSE 48
[2021-03-01 21:35] LABS: ANION GAP 14.2 mEq/L (7-13); CHLORIDE,CL 103 mmol/L (98-107); SODIUM,NA 139 mmol/L (136-145)
--- NOTE | 2021-03-01 21:48 | CT ---
PROCEDURE INFORMATION: Exam: CT Pelvis Without Contrast; Skeletal Exam date and time: 03/01/2021 8:58 PM Age: 55 years old Clinical indication: Other: Right thigh, groin pain TECHNIQUE: Imaging protocol: Computed tomography images of the pelvis without contrast. Exam focused on the skeletal structures. Radiation optimization: All CT scans at this facility use at least one of these dose optimization techniques: automated exposure control; mA and/or kV adjustment per patient size (includes targeted exams where dose is matched to clinical indication); or iterative reconstruction. COMPARISON: No relevant prior studies available. FINDINGS: Stomach and bowel: No bowel wall thickening, obstruction, or other acute pathology. Diffuse colonic diverticulosis is present. There is moderately excessive colonic stool content. Appendix: A normal appendix is identified. Reproductive: The prostate demonstrates mild nonspecific enlargement. The seminal vesicles are normal. Vasculature: The vasculature demonstrates diffuse mild atherosclerotic calcification. Bones/joints: Mild bilateral hip osteoarthritis, as manifested predominantly by decreased joint space and marginal osteophyte formation. Partially visualized lower lumbar spine fixation without discrete complications. There is no evidence of acutely displaced fractures. There is no evidence of joint dislocation. No aggressive osseous lesions. Soft tissues: Chronic coarse calcifications posterior to the right hip, favoring myositis ossificans. Calcified injection granulomas are noted in the subcutaneous tissues of the buttocks. No acute soft tissue findings. IMPRESSION: 1. NEGATIVE FOR ACUTE SKELETAL PATHOLOGY. 2. MILD BILATERAL HIP OSTEOARTHRITIS. 3. INCIDENTAL FINDINGS DETAILED ABOVE.
[2021-03-01] MEDS ORDERED: Cyclobenzaprine 10 MG Tab ONE (22:41)
[2021-03-01] MEDS ORDERED: Acetaminophen/HYDROcodone 325-10 MG Tab ONE (22:43)
== END 2021-03-01 23:00 | disposition home or self-care (01) ==
LOC: DL.ED 19:43
DX: M79.651 Pain in right thigh (principal); R10.31 Right lower quadrant pain; E78.00 Pure hypercholesterolemia, unspecified; I10 Essential (primary) hypertension; E11.9 Type 2 diabetes mellitus without complications; E05.90 Thyrotoxicosis, unspecified without thyrotoxic crisis or storm; E66.9 Obesity, unspecified; Z68.33 Body mass index [BMI] 33.0-33.9, adult; Z79.82 Long term (current) use of aspirin; Z79.899 Other long term (current) drug therapy; Z79.84 Long term (current) use of oral hypoglycemic drugs; Z87.891 Personal history of nicotine dependence
CPT/HCPCS: 36415; 72192; 80053; 85025; 85379; 85610; 96374; 96375; 99284; A9270; J2405; J3010

== ENCOUNTER 2021-05-06 05:17 | Day surgery (SDC) | payer BC ==
[~2021-05-06 05:17] MED LIST changes: +Sodium Chloride 0.9% 10 ML Syringe FLUSH SCH
[2021-05-06] MEDS ORDERED: fentaNYL 100 MCG/2 ML SDV IV ONE ×5 (05:18→06:58)
[2021-05-06] MEDS ORDERED: Midazolam 1 MG/ML 2 ML SDV IV ONE ×7 (05:18→06:46)
[2021-05-06] MEDS ORDERED: fentaNYL 100 MCG/2 ML SDV ONE (05:40)
[2021-05-06] MEDS ORDERED: Midazolam 1 MG/ML 2 ML SDV ONE (05:40)
[2021-05-06] MEDS ORDERED: Dextrose 5%-0.45% NaCl 1,000 ML IV SCH (06:00)
[2021-05-06] MEDS ORDERED: Sodium Chloride 0.9% 10 ML Syringe FLUSH PRN (06:00)
[2021-05-06 09:26] VITALS: BP 129/75; PULSE 65
== END 2021-05-06 09:05 | disposition home or self-care (01) ==
LOC: DL.ENDO 05:17
PROVIDERS: ATTEND Internal Medicine Gastroenterology
DX: Z12.11 Encounter for screening for malignant neoplasm of colon (principal); D12.2 Benign neoplasm of ascending colon; K57.30 Diverticulosis of large intestine without perforation or abscess without bleeding; E11.9 Type 2 diabetes mellitus without complications; I10 Essential (primary) hypertension; E66.09 Other obesity due to excess calories; F32.A Depression, unspecified; I25.10 Atherosclerotic heart disease of native coronary artery without angina pectoris; Z86.16 Personal history of COVID-19; Z01.812 Encounter for preprocedural laboratory examination; Z20.822 Contact with and (suspected) exposure to COVID-19
CPT/HCPCS: 45385; 87635; J2250; J3010; J7042; U0002

== ENCOUNTER 2021-08-08 20:40 | Emergency (ER) | payer BC ==
[2021-08-08] MEDS ORDERED: Sodium Chloride 0.9% 10 ML Syringe FLUSH PRN (21:05)
[2021-08-08] MEDS ORDERED: Sodium Chloride 0.9% 1,000 ML IV ONE (21:06)
[2021-08-08] MEDS ORDERED: Ketorolac 30 MG/ML SDV IVPUSH ONE (21:06)
[2021-08-08] MEDS ORDERED: Ondansetron 4 MG/2 ML SDV IVPUSH ONE (21:16)
[2021-08-08 21:51] LABS: ANION GAP 14.4 mEq/L (7-13)
[2021-08-08] MEDS: Sodium Chloride 0.9% 1,000 ML IV ONE ×2 (22:29→22:34)
[2021-08-08 22:38] VITALS: BP 134/89; PULSE 72
== END 2021-08-08 22:40 | disposition home or self-care (01) ==
LOC: DL.ED 20:40
DX: K59.00 Constipation, unspecified (principal); E78.00 Pure hypercholesterolemia, unspecified; E11.22 Type 2 diabetes mellitus with diabetic chronic kidney disease; N18.2 Chronic kidney disease, stage 2 (mild); E05.90 Thyrotoxicosis, unspecified without thyrotoxic crisis or storm; E66.9 Obesity, unspecified; Z68.34 Body mass index [BMI] 34.0-34.9, adult; Z86.16 Personal history of COVID-19; Z79.82 Long term (current) use of aspirin; Z79.84 Long term (current) use of oral hypoglycemic drugs; Z79.899 Other long term (current) drug therapy
CPT/HCPCS: 36415; 74176; 80053; 81003; 82150; 83690; 85025; 96374; 96375; 99284; J1885; J2405; J3490; J7030

== ENCOUNTER 2022-03-22 00:28 | Emergency (ER) | payer BC ==
[2022-03-22] MEDS ORDERED: Cyclobenzaprine 10 MG Tab PO ONE (00:29)
[2022-03-22 01:09] VITALS: BP 149/96; PULSE 80
[2022-03-22] MEDS ORDERED: Ketorolac 30 MG/ML SDV IM ONE (02:18)
[2022-03-22] MEDS ORDERED: Cyclobenzaprine 10 MG Tab ONE (02:22)
== END 2022-03-22 02:35 | disposition home or self-care (01) ==
LOC: DL.ED 00:28
DX: S70.02XA Contusion of left hip, initial encounter (principal); S40.011A Contusion of right shoulder, initial encounter; M62.838 Other muscle spasm; E11.21 Type 2 diabetes mellitus with diabetic nephropathy; E78.00 Pure hypercholesterolemia, unspecified; Z79.899 Other long term (current) drug therapy; Z79.84 Long term (current) use of oral hypoglycemic drugs; Z79.82 Long term (current) use of aspirin; Z86.16 Personal history of COVID-19; W18.2XXA Fall in (into) shower or empty bathtub, initial encounter
CPT/HCPCS: 72040; 72070; 73030; 73502; 96372; 99283; A9270; J1885

== ENCOUNTER 2022-05-09 12:47 | Emergency (ER) | payer BC ==
[2022-05-09 13:47] VITALS: BP 113/73; PULSE 66
== END 2022-05-09 13:50 | disposition home or self-care (01) ==
LOC: DL.ED 12:47
DX: Z71.1 Person with feared health complaint in whom no diagnosis is made (principal); E78.00 Pure hypercholesterolemia, unspecified; I10 Essential (primary) hypertension; E11.21 Type 2 diabetes mellitus with diabetic nephropathy; E05.90 Thyrotoxicosis, unspecified without thyrotoxic crisis or storm; Z79.84 Long term (current) use of oral hypoglycemic drugs; Z79.899 Other long term (current) drug therapy; Z86.16 Personal history of COVID-19; Z79.82 Long term (current) use of aspirin
CPT/HCPCS: 81003; 99283

== ENCOUNTER 2022-06-12 10:56 | Emergency (ER) | payer BC ==
[2022-06-12] MEDS ORDERED: Sodium Chloride 0.9% 10 ML Syringe FLUSH PRN (11:36)
[2022-06-12] MEDS ORDERED: Iopamidol 755 Mg/ML 100 ML Bottle IVPUSH ONE (11:38)
[2022-06-12 11:42] VITALS: BP 114/85; PULSE 80
[2022-06-12 12:22] LABS: ANION GAP 13.4 mEq/L (7-13)
== END 2022-06-12 14:24 | disposition home or self-care (01) ==
LOC: DL.ED 10:56
DX: M54.16 Radiculopathy, lumbar region (principal); M54.12 Radiculopathy, cervical region; E78.00 Pure hypercholesterolemia, unspecified; I10 Essential (primary) hypertension; E78.5 Hyperlipidemia, unspecified; E11.21 Type 2 diabetes mellitus with diabetic nephropathy; E03.9 Hypothyroidism, unspecified; Z86.16 Personal history of COVID-19; Z79.82 Long term (current) use of aspirin; Z79.899 Other long term (current) drug therapy
CPT/HCPCS: 36415; 70450; 70496; 70498; 80053; 81003; 83880; 84484; 85025; 85610; 93005; 99284; J3490; Q9967; 93010

== ENCOUNTER 2022-08-03 08:30 | Emergency (ER) | payer BC ==
[2022-08-03 08:51] VITALS: BP 115/82; PULSE 83
[2022-08-03] MEDS ORDERED: methylPREDNISolone Sodium Succinate 40 MG/1 ML SDV IM ONE (09:24)
[2022-08-03 09:42] LABS: BASOPHILS PERCENT AUTO 0.4 % (0.0-1.0); EOSINOPHILS PERCENT AUTO 2.7 % (1.0-3.0); HEMATOCRIT 40.2 % (40.0-54.0); HEMOGLOBIN 12.9 g/dL (14.0-18.0); LYMPHOCYTES PERCENT AUTO 14.3 % (20.5-50.1); MEAN CORPUSCULAR HEMOGLOBIN 27.7 pg (27.0-34.0); MEAN CORPUSCULAR HGB CONC 32.1 g/dL (33.0-35.0); MEAN CORPUSCULAR VOLUME 86.3 fL (80-100); MONOCYTES PERCENT AUTO 10.1 % (2-8); NEUTROPHILS PERCENT AUTO 72.5 % (42.2-75.2); PLATELET COUNT,PLT 215 10^3/uL (150-450); RED BLOOD CELL COUNT 4.66 10^6/uL (4.6-6.2); WHITE BLOOD CELL COUNT,WBC 7.2 10^3/uL (5.0-10.0)
[2022-08-03 10:07] LABS: LACTIC ACID 1.2 mmol/L (0.4-2.0)
[2022-08-03 10:28] LABS: A/G RATIO 1.1; ALANINE AMINOTRANSFERASE,ALT 25 U/L (16-63); ALBUMIN 3.4 g/dL (3.4-5.0); ALKALINE PHOSPHATASE 104 U/L (46-116); ANION GAP 13.3 mEq/L (7-13); ASPARTATE AMNIOTRANSFERASE,AST 18 U/L (15-37); BILIRUBIN TOTAL 0.4 mg/dL (0.2-1.0); BLOOD UREA NITROGEN,BUN 19 mg/dL (7-18); BUN/CREATININE RATIO 16.4 (No establ ref range); C-REACTIVE PROTEIN 0.5 mg/dL (0.0-0.9); CALCIUM 8.6 mg/dL (8.5-10.1); CARBON DIOXIDE,CO2 27 mmol/L (21-32); CHLORIDE,CL 104 mmol/L (98-107); CREATININE 1.16 mg/dL (0.70-1.30); EST CRCL DRUG DOSING (CG) 71.11 mL/min; ESTIMATED GFR 74 mL/min (>=60); ETHANOL BLOOD MEDICAL < 3 mg/dL (0); GLUCOSE RANDOM 186 mg/dL (70-99); POTASSIUM,K 4.3 mmol/L (3.5-5.1); PROTEIN TOTAL,TP 6.5 g/dL (6.4-8.2); SODIUM,NA 140 mmol/L (136-145); TSH ULTRASENSITIVE 1.29 uIU/mL (0.36-3.74)
== END 2022-08-03 12:54 ==
LOC: DL.ED 08:30
DX: M48.02 Spinal stenosis, cervical region (principal); M54.12 Radiculopathy, cervical region; G99.2 Myelopathy in diseases classified elsewhere; E78.00 Pure hypercholesterolemia, unspecified; I10 Essential (primary) hypertension; E11.21 Type 2 diabetes mellitus with diabetic nephropathy; E05.91 Thyrotoxicosis, unspecified with thyrotoxic crisis or storm; Z79.899 Other long term (current) drug therapy; Z79.82 Long term (current) use of aspirin; Z79.84 Long term (current) use of oral hypoglycemic drugs
CPT/HCPCS: 36415; 80053; 80307; 82607; 83605; 83735; 84443; 85025; 85651; 86140; 96372; 99285; J2920; 99284

== ENCOUNTER 2023-11-12 16:55 | Emergency (ER) | payer BC ==
[2023-11-12 17:50] VITALS: BP 108/74; PULSE 92
[2023-11-12] MEDS: Orphenadrine 60 MG/2 ML Inj IM ONE (18:28)
== END 2023-11-12 19:23 | disposition home or self-care (01) ==
LOC: DL.ED 16:55
DX: S13.4XXA Sprain of ligaments of cervical spine, initial encounter (principal); M62.838 Other muscle spasm; I10 Essential (primary) hypertension; E78.00 Pure hypercholesterolemia, unspecified; E11.21 Type 2 diabetes mellitus with diabetic nephropathy; E05.90 Thyrotoxicosis, unspecified without thyrotoxic crisis or storm; Z86.16 Personal history of COVID-19; Z79.899 Other long term (current) drug therapy; Z79.82 Long term (current) use of aspirin; Z79.84 Long term (current) use of oral hypoglycemic drugs; Z79.890 Hormone replacement therapy
CPT/HCPCS: 96372; 99283; J2360

== ENCOUNTER 2024-07-06 11:08 | Inpatient (IN) | payer BC ==
[2024-07-06] MEDS ORDERED: Sodium Chloride 0.9% 10 ML Syringe FLUSH PRN (11:22)
[2024-07-06 11:34] LABS: BASOPHILS PERCENT AUTO 0.3 % (0.0-1.0); EOSINOPHILS PERCENT AUTO 0.8 % (1.0-3.0); HEMATOCRIT 48.3 % (40.0-54.0); HEMOGLOBIN 14.7 g/dL (14.0-18.0); LYMPHOCYTES PERCENT AUTO 12.1 % (20.5-50.1); MEAN CORPUSCULAR HEMOGLOBIN 29.1 pg (27.0-34.0); MEAN CORPUSCULAR HGB CONC 30.4 g/dL (33.0-35.0); MEAN CORPUSCULAR VOLUME 95.6 fL (80-100); MONOCYTES PERCENT AUTO 5.8 % (2-8); PLATELET COUNT,PLT 204 10^3/uL (150-450); RED BLOOD CELL COUNT 5.05 10^6/uL (4.6-6.2); WHITE BLOOD CELL COUNT,WBC 7.4 10^3/uL (5.0-10.0)
[2024-07-06 11:54] LABS: ALANINE AMINOTRANSFERASE,ALT 63 U/L (16-63); ALBUMIN 3.7 g/dL (3.4-5.0); ALKALINE PHOSPHATASE 147 U/L (46-116); ANION GAP 13.8 mEq/L (7-13); ASPARTATE AMNIOTRANSFERASE,AST 30 U/L (15-37); BILIRUBIN TOTAL 0.4 mg/dL (0.2-1.0); BLOOD UREA NITROGEN,BUN 28 mg/dL (7-18); BUN/CREATININE RATIO 16.5 (No establ ref range); CALCIUM 9.1 mg/dL (8.5-10.1); CARBON DIOXIDE,CO2 27 mmol/L (21-32); CHLORIDE,CL 87 mmol/L (98-107); MAGNESIUM 2.1 mg/dL (1.8-2.4); POTASSIUM,K 5.8 mmol/L (3.5-5.1); PROTEIN TOTAL,TP 7.4 g/dL (6.4-8.2); SODIUM,NA 122 mmol/L (136-145)
[2024-07-06 11:57] LABS: C-REACTIVE PROTEIN < 0.50 ng/dL (<=0.50); ESTIMATED GFR 46 mL/min (>=60); GLUCOSE RANDOM 980 mg/dL (70-99)
[2024-07-06] MEDS ORDERED: Glucagon,Human Recombinant 1 MG Vial IM PRN ×2 (12:01→14:43)
[2024-07-06] MEDS ORDERED: 50% Dextrose in Water 50 ML Syringe IVPUSH PRN ×2 (12:01→14:43)
[2024-07-06] MEDS: Sodium Chloride 0.9% 1,000 ML IV ONE ×2 (12:01→13:01)
[2024-07-06] MEDS: Insulin Regular, Human 100 Units/ML 10 ML Vial IV ONE (12:07)
[2024-07-06 13:29] LABS: O2 DELIVERY DEVICE ROOM AIR
[2024-07-06 13:39] LABS: PCO2 VENOUS 57 mmHg (41-51); PH,VENOUS 7.31 (7.31-7.41); PO2 VENOUS 28 mmHg (35-42)
[2024-07-06 13:40] LABS: BASE EXCESS VENOUS 0.8 mmol/l ((-2)-(+3)); BICARBONATE,VENOUS 28 mmol/l (19-25); O2 SATURATION VENOUS 32.2 % (60-80)
[2024-07-06 13:52] LABS: KETONES,BLOOD NEGATIVE
[2024-07-06] MEDS ORDERED: Ondansetron 4 MG/2 ML SDV IVPUSH PRN (13:54)
[2024-07-06] MEDS ORDERED: oxyCODONE 5 MG Tab PO PRN (13:54)
[2024-07-06] MEDS ORDERED: Polyethylene Glycol 3350 Powder 17 GM Packet PO PRN (13:54)
[2024-07-06] MEDS ORDERED: Acetaminophen 325 MG Tab PO PRN (13:54)
[2024-07-06] MEDS ORDERED: Docusate Sodium 100 MG Cap PO PRN (13:54)
[2024-07-06] MEDS ORDERED: Sennosides/Docusate Sodium 50-8.6 MG Tab PO PRN (13:54)
[2024-07-06] MEDS ORDERED: Melatonin 3 MG Tab PO PRN (13:54)
[2024-07-06 13:55] LABS: ANION GAP 9.6 mEq/L (7-13); BLOOD UREA NITROGEN,BUN 28 mg/dL (7-18); CALCIUM 8.5 mg/dL (8.5-10.1); CARBON DIOXIDE,CO2 29 mmol/L (21-32); CHLORIDE,CL 96 mmol/L (98-107); CREATININE 1.35 mg/dL (0.70-1.30); PHOSPHORUS 3.9 mg/dL (2.6-4.7); POTASSIUM,K 4.6 mmol/L (3.5-5.1); SODIUM,NA 130 mmol/L (136-145)
[2024-07-06 13:56] LABS: ESTIMATED GFR 61 mL/min (>=60); GLUCOSE RANDOM 593 mg/dL (70-99)
[2024-07-06 14:02] LABS: APPEARANCE,URINE CLEAR (CLEAR); BILIRUBIN,URINE NEGATIVE (NEGATIVE); COLOR,URINE YELLOW (YELLOW); GLUCOSE,URINE >=1000 (NEGATIVE); KETONES,URINE NEGATIVE (NEGATIVE); LEUKOCYTE ESTERASE,URINE NEGATIVE (NEGATIVE); NITRITE,URINE NEGATIVE (NEGATIVE); OCCULT BLOOD,URINE NEGATIVE (NEGATIVE); PH,URINE 5.5 (5.0-9.0); PROTEIN,URINE NEGATIVE (NEGATIVE); UROBILINOGEN,URINE 0.2 mg/dL (0.2-1.0)
[2024-07-06 14:08] LABS: CHOLESTEROL HDL 67 mg/dL (40-59); CHOLESTEROL LDL CALCULATED 73 mg/dL (0-100); CHOLESTEROL TOTAL 187 mg/dL (0-199); TRIGLYCERIDES 237 mg/dL (0-149)
[2024-07-06 14:14] LABS: HEMOGLOBIN A1C > 14.0 % (<5.7)
[2024-07-06] MEDS: Sodium Chloride 0.9% 1,000 ML IV SCH (14:33)
[2024-07-06] MEDS: Potassium Chloride 20 MEQ in Premix Bag 1 BAG IV SCH (14:34)
[2024-07-06 14:52] LABS: CORONAVIRUS COVID-19 NAA NEGATIVE (NEGATIVE); INFLUENZA A NAA NEGATIVE (NEGATIVE); INFLUENZA B NAA NEGATIVE (NEGATIVE)
[2024-07-06] MEDS: Insulin Glarg,Human.Rec.Analog 100 Unit/ML 10 ML Vial SUBCUT ONE (15:09)
[2024-07-06 17:06] LABS: ANION GAP 12.1 mEq/L (7-13); CALCIUM 8.1 mg/dL (8.5-10.1); CREATININE 1.1 mg/dL (0.70-1.30); EST CRCL DRUG DOSING (CG) 74.99 mL/min; POTASSIUM,K 5.1 mmol/L (3.5-5.1)
[2024-07-06] MEDS: Insulin Lispro 100 Units/ML 3 ML Vial SUBCUT SCH (17:17)
[2024-07-06 19:49] LABS: ANION GAP 9.4 mEq/L (7-13); CREATININE 1.28 mg/dL (0.70-1.30); EST CRCL DRUG DOSING (CG) 64.44 mL/min; POTASSIUM,K 4.4 mmol/L (3.5-5.1)
[2024-07-06 20:09] LABS: T4 FREE 0.73 ng/dL (0.76-1.46); TSH ULTRASENSITIVE 2.32 uIU/mL (0.36-3.74)
[2024-07-07 06:45] LABS: BASOPHILS PERCENT AUTO 0.5 % (0.0-1.0); EOSINOPHILS PERCENT AUTO 2.3 % (1.0-3.0); HEMATOCRIT 37.4 % (40.0-54.0); HEMOGLOBIN 12.8 g/dL (14.0-18.0); LYMPHOCYTES PERCENT AUTO 26.9 % (20.5-50.1); MEAN CORPUSCULAR HEMOGLOBIN 30.5 pg (27.0-34.0); MEAN CORPUSCULAR HGB CONC 34.2 g/dL (33.0-35.0); NEUTROPHILS PERCENT AUTO 62.3 % (42.2-75.2); PLATELET COUNT,PLT 165 10^3/uL (150-450); WHITE BLOOD CELL COUNT,WBC 6.1 10^3/uL (5.0-10.0)
[2024-07-07 07:14] LABS: ALBUMIN 2.6 g/dL (3.4-5.0); BILIRUBIN TOTAL 0.3 mg/dL (0.2-1.0); BUN/CREATININE RATIO 20.2 (No establ ref range); CALCIUM 7.9 mg/dL (8.5-10.1); CREATININE 0.94 mg/dL (0.70-1.30); EST CRCL DRUG DOSING (CG) 87.75 mL/min; MAGNESIUM 1.9 mg/dL (1.8-2.4); POTASSIUM,K 4.4 mmol/L (3.5-5.1); PROTEIN TOTAL,TP 5.3 g/dL (6.4-8.2)
[2024-07-07 07:20] LABS: A/G RATIO 0.96; ANION GAP 11.4 mEq/L (7-13)
[2024-07-07] MEDS: Insulin Glarg,Human.Rec.Analog 100 Unit/ML 10 ML Vial SUBCUT ONE (08:00)
[2024-07-07 11:33] VITALS: BP 127/70; PULSE 59
== END 2024-07-07 12:20 | disposition home or self-care (01) | DRG 420 ==
LOC: DL.ED 11:08 → DL.MS 12:11
PROVIDERS: ADMIT Internal Medicine; ATTEND Internal Medicine
DX: E11.00 Type 2 diabetes mellitus with hyperosmolarity without nonketotic hyperglycemic-hyperosmolar coma (NKHHC) (principal); N17.9 Acute kidney failure, unspecified; E87.1 Hypo-osmolality and hyponatremia; E87.5 Hyperkalemia; H91.90 Unspecified hearing loss, unspecified ear; I10 Essential (primary) hypertension; G47.30 Sleep apnea, unspecified; E11.21 Type 2 diabetes mellitus with diabetic nephropathy; M54.9 Dorsalgia, unspecified; G89.29 Other chronic pain; F41.9 Anxiety disorder, unspecified; F32.A Depression, unspecified; E78.1 Pure hyperglyceridemia; E03.9 Hypothyroidism, unspecified; G25.81 Restless legs syndrome; Z79.84 Long term (current) use of oral hypoglycemic drugs; Z79.899 Other long term (current) drug therapy; Z79.4 Long term (current) use of insulin; Z86.16 Personal history of COVID-19; Z90.89 Acquired absence of other organs; Z98.890 Other specified postprocedural states; Z87.891 Personal history of nicotine dependence
CPT/HCPCS: 0240U; 36415; 80048; 80053; 80061; 81003; 82009; 82803; 82947; 83036; 83735; 84100; 84439; 84443; 84484; 85025; 86140; 99222; 99238; 99284; 99285; A9270-GY; J1815-GY; J3480; J7030

== ENCOUNTER 2024-12-22 20:13 | Emergency (ER) | payer BC ==
[2024-12-22] MEDS: Ketorolac 30 MG/ML SDV IM ONE (20:43)
[2024-12-22 21:02] VITALS: BP 138/79; PULSE 88
[2024-12-22] MEDS: Take Home: Cyclobenzaprine 10 MG Tab, 4 Tab Pack PO ONE (21:02)
== END 2024-12-22 21:02 | disposition home or self-care (01) ==
LOC: DL.ED 20:13
DX: G24.3 Spasmodic torticollis (principal); J30.9 Allergic rhinitis, unspecified; E80.0 Hereditary erythropoietic porphyria; I10 Essential (primary) hypertension; E11.40 Type 2 diabetes mellitus with diabetic neuropathy, unspecified; Z86.16 Personal history of COVID-19; Z79.4 Long term (current) use of insulin; Z79.899 Other long term (current) drug therapy
CPT/HCPCS: 96372; 99283; A9270; J1885

== ENCOUNTER 2025-02-04 13:46 | Inpatient (IN) | payer BC ==
[2025-02-04] MEDS ORDERED: Sodium Chloride 0.9% 10 ML Syringe FLUSH PRN (14:01)
[2025-02-04 14:31] LABS: BASOPHILS PERCENT AUTO 0.2 % (0.0-1.0); EOSINOPHILS PERCENT AUTO 0.7 % (1.0-3.0); LYMPHOCYTES PERCENT AUTO 7.7 % (20.5-50.1); MONOCYTES PERCENT AUTO 7.8 % (2-8); NEUTROPHILS PERCENT AUTO 83.6 % (42.2-75.2); PLATELET COUNT,PLT 383 10^3/uL (150-450); RED BLOOD CELL COUNT 5.31 10^6/uL (4.6-6.2); WHITE BLOOD CELL COUNT,WBC 15.1 10^3/uL (5.0-10.0)
[2025-02-04 14:38] LABS: APPEARANCE,URINE CLEAR (CLEAR); GLUCOSE,URINE >=1000 (NEGATIVE); OCCULT BLOOD,URINE TRACE-INTACT (NEGATIVE)
[2025-02-04 14:46] LABS: KETONES,BLOOD SMALL-20 mg/dL
[2025-02-04 14:47] LABS: SQUAMOUS EPITHELIAL CELLS,UR RARE /HPF (NOT SEEN)
[2025-02-04 14:55] LABS: LACTIC ACID 1.8 mmol/L (0.4-2.0)
[2025-02-04 15:01] LABS: ALANINE AMINOTRANSFERASE,ALT 52 U/L (16-63); ASPARTATE AMNIOTRANSFERASE,AST 31 U/L (15-37); BILIRUBIN TOTAL 0.4 mg/dL (0.2-1.0); BLOOD UREA NITROGEN,BUN 45 mg/dL (7-18); CARBON DIOXIDE,CO2 29 mmol/L (21-32); CHLORIDE,CL 83 mmol/L (98-107); CREATININE 1.52 mg/dL (0.70-1.30); EST CRCL DRUG DOSING (CG) 51.43 mL/min; POTASSIUM,K 5.0 mmol/L (3.5-5.1); PROTEIN TOTAL,TP 8.2 g/dL (6.4-8.2); SODIUM,NA 125 mmol/L (136-145)
[2025-02-04 15:03] LABS: A/G RATIO 0.67; ESTIMATED GFR 52 mL/min (>=60); GLUCOSE RANDOM 697 mg/dL (70-99)
[2025-02-04] MEDS ORDERED: 50% Dextrose in Water 50 ML Syringe IVPUSH PRN (15:04)
[2025-02-04] MEDS: Insulin Regular, Human 100 Units/ML 10 ML Vial IV ONE (15:13)
[2025-02-04 16:43] LABS: BASE EXCESS VENOUS 3.6 mmol/l ((-2)-(+3)); BICARBONATE,VENOUS 31 mmol/l (19-25); O2 DELIVERY DEVICE ROOM AIR; O2 SATURATION VENOUS 34.9 % (60-80); PH,VENOUS 7.33 (7.31-7.41); PO2 VENOUS 27 mmHg (35-42)
[2025-02-04 16:45] LABS: PCO2 VENOUS 61 mmHg (41-51)
[2025-02-04] MEDS ORDERED: Ondansetron 4 MG/2 ML SDV IVPUSH PRN (16:51)
[2025-02-04] MEDS ORDERED: Sennosides/Docusate Sodium 50-8.6 MG Tab PO PRN (16:51)
[2025-02-04 17:01] LABS: PHOSPHORUS 3.8 mg/dL (2.6-4.7)
[2025-02-04 17:43] LABS: BLOOD UREA NITROGEN,BUN 38.0 mg/dL (7-18); CARBON DIOXIDE,CO2 29.0 mmol/L (21-32); CHLORIDE,CL 91.0 mmol/L (98-107); CREATININE 1.12 mg/dL (0.70-1.30); EST CRCL DRUG DOSING (CG) 69.8 mL/min; POTASSIUM,K 4.4 mmol/L (3.5-5.1); SODIUM,NA 128.0 mmol/L (136-145)
[2025-02-04 17:47] LABS: ESTIMATED GFR 76.0 mL/min (>=60); GLUCOSE RANDOM 472.0 mg/dL (70-99)
[2025-02-04 18:17] LABS: CORONAVIRUS COVID-19 NAA NEGATIVE (NEGATIVE); INFLUENZA A NAA NEGATIVE (NEGATIVE); INFLUENZA B NAA NEGATIVE (NEGATIVE); RESPIRATORY SYNCYTIAL VIR NAA NEGATIVE (NEGATIVE)
[2025-02-04 18:26] LABS: AMPHETAMINES,URINE NEGATIVE (NEGATIVE); BARBITURATES,URINE NEGATIVE (NEGATIVE); MDMA (ECSTASY), URINE NEGATIVE (NEGATIVE); METHAMPHETAMINES,URINE NEGATIVE (NEGATIVE); OPIATES,URINE NEGATIVE (NEGATIVE); OXYCODONE,URINE NEGATIVE (NEGATIVE); PHENCYCLIDINE,URINE NEGATIVE (NEGATIVE); TCA,URINE NEGATIVE (NEGATIVE)
[2025-02-04] MEDS: Insulin Glarg,Human.Rec.Analog 100 Unit/ML 10 ML Vial SUBCUT SCH (20:28)
[2025-02-04] MEDS: Ampicillin/Sulbactam Na 3 GM in Sodium Chloride 0.9% 100 ML IV SCH (20:32)
[2025-02-04 20:45] LABS: BLOOD UREA NITROGEN,BUN 35.0 mg/dL (7-18); CARBON DIOXIDE,CO2 29.0 mmol/L (21-32); CHLORIDE,CL 91.0 mmol/L (98-107); CREATININE 1.15 mg/dL (0.70-1.30); EST CRCL DRUG DOSING (CG) 67.98 mL/min; POTASSIUM,K 4.1 mmol/L (3.5-5.1); SODIUM,NA 130.0 mmol/L (136-145)
[2025-02-04 20:52] LABS: GLUCOSE RANDOM 421.0 mg/dL (70-99)
[2025-02-04 20:53] LABS: ESTIMATED GFR 73.0 mL/min (>=60)
[2025-02-04] MEDS: Potassium Chloride 10 MEQ Tab.ER PO ONE ×2 (21:11→22:06)
[2025-02-04] MEDS: Insulin Regular, Human 100 Units/ML 10 ML Vial SUBCUT ONE (22:09)
[2025-02-04 22:47] LABS: T4 FREE 0.76 ng/dL (0.76-1.46); TSH ULTRASENSITIVE 2.8 uIU/mL (0.36-3.74)
[2025-02-04 23:38] LABS: BLOOD UREA NITROGEN,BUN 28.0 mg/dL (7-18); CARBON DIOXIDE,CO2 27.0 mmol/L (21-32); CHLORIDE,CL 98.0 mmol/L (98-107); CREATININE 0.94 mg/dL (0.70-1.30); EST CRCL DRUG DOSING (CG) 83.17 mL/min; GLUCOSE RANDOM 288.0 mg/dL (70-99); POTASSIUM,K 4.0 mmol/L (3.5-5.1); SODIUM,NA 133.0 mmol/L (136-145)
[2025-02-04 23:40] LABS: ESTIMATED GFR 93.0 mL/min (>=60)
[2025-02-05] MEDS: Potassium Chloride 10 MEQ Tab.ER PO ONE ×3 (00:10→16:58)
[2025-02-05 06:20] LABS: BASOPHILS PERCENT AUTO 0.2 % (0.0-1.0); EOSINOPHILS PERCENT AUTO 1.1 % (1.0-3.0); LYMPHOCYTES PERCENT AUTO 16.6 % (20.5-50.1); MONOCYTES PERCENT AUTO 9.5 % (2-8); NEUTROPHILS PERCENT AUTO 72.6 % (42.2-75.2); PLATELET COUNT,PLT 289 10^3/uL (150-450); RED BLOOD CELL COUNT 4.08 10^6/uL (4.6-6.2); WHITE BLOOD CELL COUNT,WBC 9.4 10^3/uL (5.0-10.0)
[2025-02-05 06:37] LABS: ALANINE AMINOTRANSFERASE,ALT 31.0 U/L (16-63); ASPARTATE AMNIOTRANSFERASE,AST 19.0 U/L (15-37); BILIRUBIN TOTAL 0.2 mg/dL (0.2-1.0); BLOOD UREA NITROGEN,BUN 24.0 mg/dL (7-18); CARBON DIOXIDE,CO2 28.0 mmol/L (21-32); CHLORIDE,CL 103.0 mmol/L (98-107); CREATININE 0.64 mg/dL (0.70-1.30); EST CRCL DRUG DOSING (CG) 126.56 mL/min; GLUCOSE RANDOM 176.0 mg/dL (70-99); POTASSIUM,K 4.2 mmol/L (3.5-5.1); PROTEIN TOTAL,TP 5.5 g/dL (6.4-8.2); SODIUM,NA 136.0 mmol/L (136-145)
[2025-02-05 06:41] LABS: A/G RATIO 0.62; ESTIMATED GFR 109.0 mL/min (>=60)
[2025-02-05] MEDS: Ampicillin/Sulbactam Na 3 GM in Sodium Chloride 0.9% 100 ML IV SCH (16:58)
[2025-02-05] MEDS: Insulin Glarg,Human.Rec.Analog 100 Unit/ML 10 ML Vial SUBCUT SCH (19:43)
[2025-02-05] MEDS: Potassium Chloride 10 MEQ Tab.ER PO STA (21:06)
[2025-02-06 06:26] LABS: BASOPHILS PERCENT AUTO 0.3 % (0.0-1.0); EOSINOPHILS PERCENT AUTO 1.2 % (1.0-3.0); LYMPHOCYTES PERCENT AUTO 21.4 % (20.5-50.1); MONOCYTES PERCENT AUTO 10.1 % (2-8); NEUTROPHILS PERCENT AUTO 67.0 % (42.2-75.2); PLATELET COUNT,PLT 273 10^3/uL (150-450); RED BLOOD CELL COUNT 3.99 10^6/uL (4.6-6.2); WHITE BLOOD CELL COUNT,WBC 7.3 10^3/uL (5.0-10.0)
[2025-02-06 06:56] LABS: ALANINE AMINOTRANSFERASE,ALT 32.0 U/L (16-63); ASPARTATE AMNIOTRANSFERASE,AST 24.0 U/L (15-37); BILIRUBIN TOTAL 0.2 mg/dL (0.2-1.0); BLOOD UREA NITROGEN,BUN 13.0 mg/dL (7-18); CARBON DIOXIDE,CO2 26.0 mmol/L (21-32); CHLORIDE,CL 104.0 mmol/L (98-107); CREATININE 0.56 mg/dL (0.70-1.30); EST CRCL DRUG DOSING (CG) 144.64 mL/min; GLUCOSE RANDOM 95.0 mg/dL (70-99); POTASSIUM,K 3.9 mmol/L (3.5-5.1); PROTEIN TOTAL,TP 5.6 g/dL (6.4-8.2); SODIUM,NA 137.0 mmol/L (136-145)
[2025-02-06 06:57] LABS: A/G RATIO 0.6; ESTIMATED GFR 114.0 mL/min (>=60)
[2025-02-06] MEDS: Potassium Chloride 10 MEQ Tab.ER PO SCH (08:09)
[2025-02-06] MEDS: Insulin Glarg,Human.Rec.Analog 100 Unit/ML 10 ML Vial SUBCUT SCH (20:58)
[2025-02-07 06:06] LABS: BASOPHILS PERCENT AUTO 0.3 % (0.0-1.0); EOSINOPHILS PERCENT AUTO 1.3 % (1.0-3.0); LYMPHOCYTES PERCENT AUTO 25.4 % (20.5-50.1); MONOCYTES PERCENT AUTO 12.4 % (2-8); NEUTROPHILS PERCENT AUTO 60.6 % (42.2-75.2); PLATELET COUNT,PLT 305 10^3/uL (150-450); RED BLOOD CELL COUNT 4.44 10^6/uL (4.6-6.2); WHITE BLOOD CELL COUNT,WBC 6.7 10^3/uL (5.0-10.0)
[2025-02-07 06:36] LABS: ALANINE AMINOTRANSFERASE,ALT 41.0 U/L (16-63); ASPARTATE AMNIOTRANSFERASE,AST 37.0 U/L (15-37); BILIRUBIN TOTAL 0.3 mg/dL (0.2-1.0); BLOOD UREA NITROGEN,BUN 14.0 mg/dL (7-18); CARBON DIOXIDE,CO2 30.0 mmol/L (21-32); CHLORIDE,CL 100.0 mmol/L (98-107); CREATININE 0.78 mg/dL (0.70-1.30); EST CRCL DRUG DOSING (CG) 103.85 mL/min; GLUCOSE RANDOM 127.0 mg/dL (70-99); POTASSIUM,K 4.6 mmol/L (3.5-5.1); PROTEIN TOTAL,TP 6.5 g/dL (6.4-8.2); SODIUM,NA 137.0 mmol/L (136-145)
[2025-02-07 06:37] LABS: A/G RATIO 0.63; ESTIMATED GFR 103.0 mL/min (>=60)
[2025-02-07 08:45] VITALS: BP 139/79; PULSE 58
== END 2025-02-07 10:52 | disposition home or self-care (01) | DRG 420 ==
LOC: DL.ED 13:46 → DL.MS 16:12 → UNDOADMOB 16:12 → INTOOBSV 16:12 → DL.MS 16:12 → OBSVTOIN 02-05 14:34
PROVIDERS: ADMIT Student in an Organized Health Care Education/Training Program; ATTEND Student in an Organized Health Care Education/Training Program
DX: E11.10 Type 2 diabetes mellitus with ketoacidosis without coma (principal); J18.9 Pneumonia, unspecified organism; J98.4 Other disorders of lung; Z66 Do not resuscitate; H91.90 Unspecified hearing loss, unspecified ear; E78.00 Pure hypercholesterolemia, unspecified; I10 Essential (primary) hypertension; G47.30 Sleep apnea, unspecified; E11.21 Type 2 diabetes mellitus with diabetic nephropathy; M54.9 Dorsalgia, unspecified; G89.29 Other chronic pain; J32.9 Chronic sinusitis, unspecified; F41.9 Anxiety disorder, unspecified; F32.A Depression, unspecified; E05.90 Thyrotoxicosis, unspecified without thyrotoxic crisis or storm; Z86.16 Personal history of COVID-19; Z79.899 Other long term (current) drug therapy; Z79.4 Long term (current) use of insulin; Z79.84 Long term (current) use of oral hypoglycemic drugs; Z90.49 Acquired absence of other specified parts of digestive tract; Z98.890 Other specified postprocedural states
CPT/HCPCS: 36415; 71046; 80048; 80053; 80305-QW; 81001; 82009; 82803; 82947; 83036; 83605; 83735; 84100; 84439; 84443; 85025; 87040; 87637; 96361; 96365; 96367; 96372; 96375; 96376; 99223; 99232; 99238; 99284; 99285-25; A9270-GY; G0378; J0295; J0456; J0696; J1650; J1815-GY; J2470; J7030; J7050